=== PATIENT | male | born 1990 | race African-American/Black ===

== ENCOUNTER 2017-06-03 05:36 | Emergency (ER) | payer OTHER ==
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
== END 2017-06-03 07:22 | disposition home or self-care (01) ==
LOC: CED 05:36
DX: S13.9XXA Sprain of joints and ligaments of unspecified parts of neck, initial encounter (principal); S20.211A Contusion of right front wall of thorax, initial encounter; R51 Headache; F17.210 Nicotine dependence, cigarettes, uncomplicated; V43.62XA Car passenger injured in collision with other type car in traffic accident, initial encounter
CPT/HCPCS: 70450; 71010; 72040; 99285